=== PATIENT | female | born 2005 | race Caucasian/White ===

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

== ENCOUNTER 2024-03-23 19:49 | Emergency (ER) | payer BC, SELFPAY ==
[2024-03-23] VITALS (7 sets, daily range): BP systolic 118–132; BP diastolic 78–81; PULSE 85–89; RESP 18–20; TEMP 36.8; O2SAT 99; BMI 32.8
--- OUTSIDE RECORDS SUMMARY | 2024-03-23 19:51 | XMS_ITS | Clinical Summary ---
Author Organization [facility] Address [place], [place] [address] Care Team Providers Care Commodities Clerk Name Role Phone Pcp, No Primary Care Provider Unavailabl e Allergies No known active allergies Medications hydrOXYzine HCL (ATARAX) 10 mg tabletIndications :Anxiety Take 1 Tablet (10 mg) by mouth 2 times daily if needed for Anxiety. 30 Tablet 1 02/21/20 23 Active metroNIDAZOLE 0.75 % gelIndications:Pe riorbital dermatitis Apply topically to affected area(s) two times daily. 45 g 3 08/19/19 24 Active levonorgestrel-et hinyl estradiol (SEASONALE) 0.15 mg-30 mcg (91) tabletIndications :Encounter for other general counseling or advice on contraception Take 1 Tablet by mouth once daily. 91 Tablet 3 01/07/20 23 025 Discontinu ed(*Patien t states no longer taking) norgestimate-ethi nyl estradiol, 0.25-35 mg-mcg, (ORTHO-CYCLEN) 0.25-35 mg-mcg tabletIndications :Encounter for other general counseling or advice on contraception,Dys menorrhea,Menorrh agia with regular cycle Take 1 Tablet by mouth once daily. Skip the placebo weeks to only have a period every 3 months. 84 Tablet 4 08/19/19 24 025 Discontinu ed(*Patien t states no longer taking) diazePAM (Valium) 5 mg tabletIndications :Anxiety about treatment Take 1 Tablet (5 mg) by mouth one time for 1 dose. 1 Tablet 03/07/19 25 025 diazePAM (VALIUM) 5 mg tablet Take 1 Tablet by mouth once daily. 03/07/19 25 025 Discontinu ed(*Patien t states no longer taking) Hospital, Clinic, or Other Facility Administered Medication Ordered Dose Route Frequency Start Date End Date Status levonorgestrel (MIRENA) 21 mcg/24 hours (8 yrs) 52 mg intrauterine device (IUD) 1 DeviceIndications:Encounter for IUD insertion 1 Device IU Q 8 YEARS 03/17/2024 Active Active Problems Problem Noted Date Diagnosed Date Dysmenorrhea 08/19/2023 Menorrhagia with regular cycle 08/19/2023 Resolved Problems Problem Noted Date Diagnosed Date Resolved Date Influenza-like illness 01/15/201509/27 Encounters Date Type Department Care Team Description 03/17/2024 1:00 PM CONSTRUCTION TRADES TEACHER Office Visit [facility] [address] [facility] [address] [place] [address] Christin Kang PA Procedure (IUD insertion/) 03/17/2024 Travel 03/16/2024 Telephone [facility] [address] [place] [address] Manuel Josue MBBS Appointment 03/12/2024 Travel from Last 3 Months Immunizations Name Administration Dates Next Due DTP 05/29/2005, 5,04/09/2004,01/10 DTaP 10/26/2009, 6,04/09/2004,01/10 [id number] (Pediarix) 06/11/2004 HIB PRP-T (ActHIB,Hiberix) 05/29/2005,,04/09/2004,01/10 Hepatitis A (Peds) 10/17/2016,10/26/2009 Hepatitis B (Peds) 06/11/2004,01/11/2004, 004 Hib Conjugate, Unspecified 05/29/2005,,04/09/2004,01/10 Inactivated Polio Vaccine 10/26/2009,,04/09/2004,01/10 Influenza,LAIV4 Live Intrana davion (Flumist) 12/12/2013 MENINGOCOCCAL VACCINE 2 VIAL 2MO-55YO (MENVEO) 11/25/2021,10/17/2016 MMR 10/26/2009,05/29/2005 Pneumococcal conj 13-Valent (Prevnar 13) 05/29/2005,06/11/2004,04/09/2004,01/10 Pneumococcal conj 7-Valent (Prevnar 7) 0 05/29/2005,06/11/2004,04/09/2004,01/10 Tdap 10/17/2016 Varicella Vaccine 10/26/2009,05/29/2005 Family History Medical History Relation Name Comments Hyperlipidemia Father Hypertension Father Celiac disease Sister 1 Diabetes type I Sister 2 Relation Name Status Comments Father Alive Maternal Grandfather Alive Maternal Grandmother Mother Alive Paternal Grandfather Paternal Grandmother Sister 1 Alive Sister 2 Alive Social History Tobacco Use Types Packs/Day Years Used Date Smoking Tobacco: Never Passive Smoke Exposure: Past Smokeless Tobacco: Never Tobacco Cessation:Counseling Given: Not Answered Comments:parents smoke outside Alcohol Use Standard Drinks/Week Comments No 0 (1 standard drink = 0.6 oz pur e alcohol) PHQ-2 Answer Date Recorded PHQ-2 TOTAL SCORE 2 08/19/2023 Social Connections Answer Date Recorded Do you often feel lonely or isolated from those around you? 0 04/22/2023 Financial Resource Strain Answer Date R ecorded Difficulty of Paying Living Expenses 3 04/22/2023 Difficulty of Paying Living Expenses Not on file 04/22/2023 Food Insecurity Answer Date Recorded Do you worry your food will run out before you are able to buy more? 1 04/22/2023 Transportation Needs Answer Date Record ed Does lack of transportation keep you from medica l appointments? 1 04/22/2023 Does lack of transportation keep you from work, meetings or getting things that you need? 1 04/22/2023 Housing Stability Answer Date Recorded What is your housing situation today? 1 04/22/2023 Interpersonal Safety Answer Date Record ed Are you being hit, kicked, p ushed or yelled at (see row info)? No 02/15/2023 Interpersonal Safety Abuse 12 - 18 Not on file 02/15/2023 Interpersonal Safety Ambulatory Vulnerability No t on file 02/15/2023 Utilities Answer Date Recorded Do you have trouble paying f or utilities (for example, heat, electricity, water, phone)? 1 04/22/2023 Comments No Sex and Gender Information Value Date Recorded Sex Assigned at Female 03/26/2020 10:28 AM CONSTRUCTION TRADES TEACHER Legal Sex Female 7:58 AM CONSTRUCTION TRADES TEACHER Gender Identity Female 03/26/2020 10:28 AM CONSTRUCTION TRADES TEACHER Sexual Orientation Straight 03/26/2020 10 :28 AM CONSTRUCTION TRADES TEACHER Obstetrics History Last Filed Vital Signs Vital Sign Reading Time Taken Comments Blood Pressure 110/80 03/17/2024 1:19 PM CONSTRUCTION TRADES TEACHER Pulse 88 03/17/2024 1:19 PM CONSTRUCTION TRADES TEACHER Temperature 37 C (98.6 F) 02/15/2023 9:36 AM CONSTRUCTION TRADES TEACHER Respiratory Rate 16 02/19/2023 2:18 PM CONSTRUCTION TRADES TEACHER Oxygen Saturation 99% 04/22/2023 10:47 AM CONSTRUCTION TRADES TEACHER Inhaled Oxygen Concentration - - Weight 84.1 kg (185 lb 6.4 oz) 03/17/2024 1:19 P M CONSTRUCTION TRADES TEACHER Height 160 cm (5' 3) 08/19/2023 11:04 AM CDT Body Mass Index - - Plan of Treatment Upcoming Encounters Date Type Department Care Team (Late st Contact Info) Description 04/15/2024 2:00 PM CONSTRUCTION TRADES TEACHER Office Visit [facility] [address] [address] [place] [address] [place], [place] [id number] Health Maintenance Due Date Last Done Comments HPV series for age 9-26 (1 - 3-dose series) 11/09/2018 Well Child Check for age 3-20 09/28/2019, 10/17/2016, 10/26/2009 COVID-19 vaccine series ( season) 2023 Influenza for age 9-49 10/25/2023 12/12/2013 BMI (ht and wt on same day) for age 18+ 08/18/2024 08/19/2023, 04/22/2023, 02/19/2023, Additional history exists Depression screening for age 12+ 08/18/2024 08/19/2023, 03/26/2020, 09/27/2018, Additional history exists Chlamydia for age 16-24 03/17/2025 03/17/2024, 01/06 Tetanus booster 10/17/2026 10/17/2016 Pneumococcal series for age 6-49 Completed 05/29/2005, 05/29/2005, 06/11/2004, Additional history exists Tdap Completed 10/17/2016 Meningococcal series for age 11-21 Completed 2021, 10/17/2016 HIV for age 15-65 Completed 01/06/2023 Hepatitis C screening for ag e 18-79 Completed 01/06/2023 Procedures Procedure Name Priority Date/Time Associated Diagnosis Comments GC CHLAMYDIA TRACH PROBE Routine 03/17/2024 2:00 PM CONSTRUCTION TRADES TEACHER Encounter for IUD insertion URINE POCT Patient wait 03/17/2024 1:03 PM CONSTRUCTION TRADES TEACHER Encounter for test, result unknown ANTI HIV 1/2 Routine 01/06/2023 11:15 AM CONSTRUCTION TRADES TEACHER Screen for STD (sexually transmitted disease) ANTI HCV Routine 01/06/2023 11:15 AM CONSTRUCTION TRADES TEACHER Screen for STD (sexually transmitted disease) from Last 3 Months or Most Recently Relevant to Health Maintenance Results * Vaginal GC CHLAMYDIA TRACH PROBE (03/17/2024 2:00 PM CONSTRUCTION TRADES TEACHER) CHLAMYDIA PROBE Negative 11:33 AM CONSTRUCTION TRADES TEACHER [facility] N GONORRHOEAE PROBE Negative 03/18/2024 11:33 AM CONSTRUCTION TRADES TEACHER [facility] Other VAGINAL SWAB / Unknown Non-Blood / Unknown 03/17/2024 2:00 PM CONSTRUCTION TRADES TEACHER 03/17/2024 4:09 PM CONSTRUCTION TRADES TEACHER us Christin MARTINEZ MICROBIOLOGY Final R esult [facility] [address] [place] [address], * POCT Urine (03/17/2024 1:03 PM CONSTRUCTION TRADES TEACHER) Pathologist [facility] POC HCG URINE NEGATIVE NEGATIVE [facility] ll Specialty (Urgent Care) Urine URINE SPECIMEN / Unknown 03/17/2024 1:03 PM CONSTRUCTION TRADES TEACHER 03/17/2024 1:04 PM CONSTRUCTION TRADES TEACHER Christin Kang PA URINE Final R esult Performing Organization Address City/[facility] Co de Phone Number [facility] [address] [place] [address], [place] [facility] (Urgent Care) [address] [place] [address] * ANTI HCV (01/06/2023 11:15 AM CONSTRUCTION TRADES TEACHER) [facility] HEPATITIS C ANTIBODY Non-Reacti ve Non-React ronnie 01/06/2023 4:13 PM CONSTRUCTION TRADES TEACHER [facility] Comment:Please note, per www .CDC.gov: If a patient is known to be at high risk of HCV infection, or is symptomatic, and the physician's suspicion of HCV infection is high, HCV RNA testing is often employed and is of diagnostic value, even after an initial negative anti-HCV test result. Blood BLOOD SPECIMEN / Unknown Venipuncture / Unknown 01/06/2023 11:15 AM CONSTRUCTION TRADES TEACHER 01/06/2023 11:35 AM CONSTRUCTION TRADES TEACHER Alisia Zavaleta ARMAMENT MECHANIC SEND OUTS Final Res ult [facility] [address] [place] [address], [place] * ANTI HIV 1/2 (01/06/2023 11:15 AM CONSTRUCTION TRADES TEACHER) [facility] HIV-1/HIV-2 SCREEN Non-Reacti ve Non-Reacti ve 01/06/2023 9:37 PM CONSTRUCTION TRADES TEACHER [facility] Comment:HIV-1 p24 and HIV-1/ HIV-2 Ab Not Detected. Blood BLOOD SPECIMEN / Unknown Venipuncture / Unknown 01/06/2023 11:15 AM CONSTRUCTION TRADES TEACHER 01/06/2023 11:35 AM CONSTRUCTION TRADES TEACHER us Alisia Zavaleta ARMAMENT MECHANIC SEND OUTS Final Res ult [facility] [address] [place] [address], [place] from Last 3 Months or Most Recently Relevant to Health Maintenance Insurance [facility] Care Teams Commodities Clerk Relationship Specialty Start Date End Date Pcp, No . PCP - General 02/09/15
--- OUTSIDE RECORDS SUMMARY | 2024-03-23 19:51 | XMS_ITS | Referral Summary ---
Author Organization [facility] [place] Address [address] [place] [address] Care Team Providers Care It Engineer Name Role Phone [facility] Primary Care Provider Allergies No known active allergies Medications sucralfate (CARAFATE) 1 GM/10ML suspension Take 10 mLs (1 g) by mouth 4 times daily as needed (Epigastric pain) 420 mL 07/02/2019 Active Social History Tobacco Use Types Packs/Day Years Used Date Smoking Tobacco: Never Assessed Comments No Sex and Gender Information Value Date Recorded Sex Assigned at Not on file Legal Sex Female 4:34 AM DRY KILN OPERATOR HELPER Gender Identity Not on file Sexual Orientation Not on file Last Filed Vital Signs Vital Sign Reading Time Taken Comments Blood Pressure 130/87 07/02/2019 4:07 AM CDT Pulse 105 07/24/2018 9:15 PM CDT Temperature 37.1 C (98.8 F) 07/02/2019 4:07 AM CDT Respiratory Rate 22 07/02/2019 4:07 AM CDT Oxygen Saturation 99% 07/02/2019 4:07 AM CDT Inhaled Oxygen Concentration - - Weight 60.5 kg (133 lb 6.1 oz) 07/24/2018 9:15 P M CDT Height - - Body Mass Index - - Plan of Treatment Not on file Care Teams It Engineer Relationship Specialty Start Date End Date [facility], [facility] [address] [place], [place] [phone] PCP - General 06/10/18
--- OUTSIDE RECORDS SUMMARY | 2024-03-23 19:51 | XMS_ITS | Clinical Summary ---
Author Organization [facility] Address [address] [place] [address] Care Team Providers Care Striper Name Role Phone [facility] Primary Care Provider Allergies No known [...] on file Legal Sex Female 4:34 AM STEERER Gender Identity Not on file Sexual Orientation [...] of Treatment Not on file Care Teams Striper Relationship Specialty Start Date End Date [facility], [facility] [address] [place], [place] [address] PCP - General 06/10/18
--- NOTE | 2024-03-23 20:20 | ED.GENADULT ---
HPI - General Adult General Date Seen: 03/23/24 Chief complaint: Unspecified Complaint, Adult Stated complaint: painful cramps after IUD insertion Time Seen by Provider: 03/23/24 19:57 History of Present Illness HPI narrative: Patient is a 18-year-old here with a family member for evaluation of pelvic pain status post IUD placement last week. It sounds as if they suspect she might have endometriosis based on prior symptoms. She has a sister who was diagnosed recently with endometriosis. She says the day after the IUD was placed she had a lot of cramping and then it got better for few days but has gotten worse the past couple of days. She is having bleeding which also concerned her. They were worried about possible cyst or movement of the IUD. She has not had fevers, vomiting, urinary symptoms. IUD was placed at the [facility] [place]. Related Data Home Medications ?Medication ?Instructions ?Recorded ?Confirmed hydroxyzine HCl 10 mg tablet 10 mg PO BID PRN 03/23/24 03/23/24 Allergies Allergy/AdvReac Type Severity Reaction Status Date / Time No Known Drug Allergies Allergy Verified 03/23/24 19:59 Review of Systems Status of ROS: Reports: 6 or more systems reviewed and unremarkable except as noted in History and below [facility] Medical History Anxiety ?F41.9 - Anxiety disorder, unspecified (ICD-10) Pre-op exam ?Z01.818 - Encounter for other preprocedural examination (ICD-10) Microcytic anemia ?D50.9 - Iron deficiency anemia, unspecified (ICD-10) Surgical History No significant past surgical history Family History Maternal Grandmother Ovarian cancer Father High blood pressure Mother COPD (chronic obstructive pulmonary disease) Sister Type 1 diabetes Sister CD (celiac disease) Social History Smoking Status: Never smoker Do you use any of these nicotine containing products: None Second hand tobacco smoke exposure: No How often do you have a drink containing alcohol: never How often do you have six or more drinks on one occasion: Never AUDIT-C Alcohol total score: 0 Non-prescribed substance use: denies use Caffeine: Yes (rare) Are you using contraception or practicing any form of control: No service: No Exam Narrative: Exam Narrative: Vital signs reviewed In general, alert, nontoxic young woman. Looks comfortable. Head: Normocephalic, atraumatic. Eyes: Sclera clear. Pupils equal and reactive. ENT: Mucous membranes moist. Neck: Supple without adenopathy. Heart: Regular rate and rhythm without murmur. Lungs: Clear. No increased work of breathing, crackles or wheezes. Abdomen: Soft, nontender to palpation. Extremities: Well perfused, pulses intact. No significant edema. Neurologic: Alert, conversant. Speech fluent, face symmetric. Moves all extremities equally. Skin: Warm, dry well perfused. Affect: Normal. Const: Vital Signs, click to edit/add: Vital Signs - 24 hr 03/23/24 19:56 03/23/24 20:00 03/23/24 20:03 Temperature 98.3 F Pulse Rate [Right Pulse Oximeter] 89 Respiratory Rate 20 Respiratory Rate [ Pelvic] 18 Blood Pressure [Ri ght Upper Arm] 132/81 Pulse Oximetry 99 99 Oxygen Delivery Me thod Room Air 03/23/24 20:23 03/23/24 21:36 03/23/24 22:05 Temperature 98.3 F 98.3 F 98.3 F Pulse Rate [Right Pulse Oximeter] 85 Respiratory Rate 20 Respiratory Rate [ Pelvic] Blood Pressure [Ri ght Upper Arm] 118/78 Pulse Oximetry 99 Oxygen Delivery Me thod Room Air 03/23/24 22:07 Temperature 98.3 F Pulse Rate [Right Pulse Oximeter] 85 Respiratory Rate 20 Respiratory Rate [ Pelvic] Blood Pressure [Ri ght Upper Arm] 118/78 Pulse Oximetry Oxygen Delivery Me thod Course Course ED Course: Ultrasound is ordered to evaluate placement of the IUD and rule out cyst. UA ordered as well, will reconfirm no evidence of . Toradol 30 mg IM ordered for pain. Abdominal exam is benign. Suspicion for alternate pathologies such as appendicitis, ovarian torsion, urinary tract infection, kidney stone etcetera is rather low. Ultrasound read as unremarkable. IUD is in good position, no ovarian cyst. Color Doppler of the ovaries per Radiology report is limited, but no abnormalities in ovarian size and no large says. Overall I do not suspect that this is torsion. Urine test is negative. UA shows 25-50 red blood cells, likely related to vaginal bleeding. Reviewed with her that some cramping and bleeding is normal at this point after IUD placement. For now I would continue with ibuprofen and Tylenol, warm compresses or ice may be helpful as well. If she just does not feel that she is able to tolerate it, she can talk with her clinic and have it removed. Return any time for significant worsening symptoms, fevers, severe uncontrolled pain, vomiting etc.. Vital Signs Vital signs: Initial Vital Signs Temperature 98.3 F 03/23/24 19:56 Temperature Source Temporal Artery Scan 03/23/24 19:56 Pulse Rate 89 03/23/24 19:56 Respiratory Rate 20 03/23/24 19:56 Blood Pressure 132/81 03/23/24 19:56 Blood Pressure Mean 98 03/23/24 19:56 Blood Pressure Position Sitting 03/23/24 19:56 Pulse Oximetry 99 03/23/24 19:56 Oxygen Delivery Method Room Air 03/23/24 19:56 Vital Signs Temperature 98.3 F 03/23/24 19:56 Pulse Rate 89 03/23/24 19:56 Respiratory Rate 20 03/23/24 19:56 Blood Pressure 132/81 03/23/24 19:56 Pulse Oximetry 99 03/23/24 19:56 Oxygen Delivery Method Room Air 03/23/24 19:56 Temperature 98.3 F 03/23/24 22:07 Pulse Rate 85 03/23/24 22:07 Respiratory Rate 20 03/23/24 22:07 Blood Pressure 118/78 03/23/24 22:07 Pulse Oximetry 99 03/23/24 22:05 Oxygen Delivery Method Room Air 03/23/24 22:05 Medications Administered Medications: Discontinued Medications Generic Name Dose Route Start Last Admin Trade Name Freq PRN Reason Stop Dose Admin Ketorolac Tromethamine 30 mg 03/23/24 20:11 03/23/24 20:23 Ketorolac 30 Mg/Ml Inj IM 03/23/24 20:12 30 mg ONCE ONE Administration Medical Decision Making Lab Data Labs: Lab Results 03/23/24 Range/Units 20:12 Urine Color Yellow (Yellow) Urine Appearance Clear (Clear) Urine pH 5.5 (5.0-8.5) Ur Specific [place] 1.020 (1.000-1.030) Urine Protein Trace A (Negative) Urine Glucose (UA) Negative (Negative) Urine Ketones Negative (Negative) Urine Blood 3+ A (Negative) Urine Nitrite Negative (Negative) Urine Bilirubin Negative (Negative) Urine Urobilinogen 0.2 (0.2-1.0) Ur Leukocyte Esterase Trace A (Negative) Urine RBC 25-50 A (0-2) Urine WBC 0-2 (0-5) Ur Squamous Epith Cells Few (None-Few) Urine Bacteria None (None) Urine HCG, Qual Negative (Negative) Imaging Data US - abdomen: Attestation: I have reviewed the pertinent imaging results. Radiologist's impression: Patient: YANN ARMANDO Facility: [facility] Site . Site : 2003 Study: US-Pelvis -03/23/2024 9:22:35 PM Ordering Physician: Anna Feliz Final Report: INDICATION: IUD placed last week. Worsening pelvic pain TECHNIQUE: Ultrasound pelvis transabdominal and transvaginal. Endovaginal imaging was performed to better visualize the endometrium and ovaries. Real-time brito scale sonographic images with color Doppler imaging of the ovaries were obtained. COMPARISON: None FINDINGS: Uterus: 7 x 4 x 3.3 cm. An IUD is present in the uterine cavity near the fundus with no identified complications. Endometrium: 4 mm Right ovary: 3.5 x 2 x 2.4 cm. The right ovary is normal in appearance and echotexture. Color Doppler exam of the right ovary is limited. Left ovary: 2.2 x 2 x 2.6 cm. The left ovary is normal in appearance and echotexture. Color Doppler exam of the left ovary is limited. Cul-de-sac: Trace pelvic ascites is noted. IMPRESSION: 1. An IUD is present in the uterine cavity near the fundus with no identified complications. Dictated by Lane Enciso MD @ 03/23/2024 9:42:32 PM Dictated by: Lane Enciso MD @ 03/23/2024 21:42:36 Discharge Plan Discharge Clinical Impression: Abdominal pain Patient Disposition: Home, Self-Care Condition: Stable Instructions: Abdominal Pain (ED) Additional Instructions: Continue ibuprofen 400 mg plus Tylenol 1000 mg 3 times daily with food. Heating pad as needed. If you do not feel you can tolerate your symptoms, you can talk with your clinic and have the IUD removed. For new symptoms such as fevers, vomiting, or other worsening, return to the ER at any time. Prescriptions: No Action hydroxyzine HCl 10 mg tablet 10 mg PO BID PRN Follow Up/Referrals: Trini Gonzalez MD [Staff Physician] - Stand Alone Forms: [employer] Info Instructions
[2024-03-23] MEDS: KETOROLAC 30 MG/ML inj IM (20:23)
[2024-03-23 20:24] LABS: Appearance Urine Clear (Clear); Bilirubin Urine Negative (Negative); Blood Urine 3+ (Negative); Color Urine Yellow (Yellow); Glucose Urine Negative (Negative); Ketones Urine Negative (Negative); Leukocyte Esterase Urine Trace (Negative); Nitrite Urine Negative (Negative); Protein Urine Trace (Negative); Urobilinogen Urine 0.2 (0.2-1.0); pH Urine 5.5 (5.0-8.5)
--- OUTSIDE RECORDS SUMMARY | 2024-03-23 20:33 | XMS_ITS | Clinical Summary ---
Author Organization [facility] Address [place], [place] [address] Care Team Providers Care Chief Writer Name Role Phone Pcp, No Primary Care [...] Department Care Team Description 03/17/2024 1:00 PM THIOKOL OPERATOR Office Visit [facility] [address] [facility] [address] [place] [address] Christin Kang PA Procedure (IUD insertion/) 03/17/2024 Travel 03/16/[address] [facility] [address] [place] [address] Manuel Josue MBBS Appointment 03/12/2024 Travel from Last 3 Months Immunizations Name Administration Dates Next Due DTP 05/29/2005, 5,04/09/2004,01/10 DTaP 10/26/2009, 6,04/09/2004,01/10 [id number] (Pediarix) 06/11/2004 HIB PRP-T (ActHIB,Hiberix) 05/29/2005,,04/09/2004,01/10 Hepatitis [...] Sex Assigned at Female 03/26/2020 10:28 AM THIOKOL OPERATOR Legal Sex Female 7:58 AM THIOKOL OPERATOR Gender Identity Female 03/26/2020 10:28 AM THIOKOL OPERATOR Sexual Orientation Straight 03/26/2020 10 :28 AM THIOKOL OPERATOR Obstetrics History Last Filed Vital Signs Vital Sign Reading Time Taken Comments Blood Pressure 110/80 03/17/2024 1:19 PM THIOKOL OPERATOR Pulse 88 03/17/2024 1:19 PM THIOKOL OPERATOR Temperature 37 C (98.6 F) 02/15/2023 9:36 AM THIOKOL OPERATOR Respiratory Rate 16 02/19/2023 2:18 PM THIOKOL OPERATOR Oxygen Saturation 99% 04/22/2023 10:47 AM THIOKOL OPERATOR Inhaled Oxygen Concentration - - Weight 84.1 kg (185 lb 6.4 oz) 03/17/2024 1:19 P M THIOKOL OPERATOR Height 160 cm (5' 3) 08/19/2023 11:04 AM CDT Body Mass Index - - Plan of Treatment Upcoming Encounters Date Type Department Care Team (Late st Contact Info) Description 04/15/2024 2:00 PM THIOKOL OPERATOR Office Visit [facility] [address] [address] [place] [address] [place], [place] [phone] Health Maintenance Due Date Last Done Comments [...] CHLAMYDIA TRACH PROBE Routine 03/17/2024 2:00 PM THIOKOL OPERATOR Encounter for IUD insertion URINE POCT Patient wait 03/17/2024 1:03 PM THIOKOL OPERATOR Encounter for test, result unknown ANTI HIV 1/2 Routine 01/06/2023 11:15 AM THIOKOL OPERATOR Screen for STD (sexually transmitted disease) ANTI HCV Routine 01/06/2023 11:15 AM THIOKOL OPERATOR Screen for STD (sexually transmitted disease) from Last 3 Months or Most Recently Relevant to Health Maintenance Results * Vaginal GC CHLAMYDIA TRACH PROBE (03/17/2024 2:00 PM THIOKOL OPERATOR) CHLAMYDIA PROBE Negative 11:33 AM THIOKOL OPERATOR [facility] N GONORRHOEAE PROBE Negative 03/18/2024 11:33 AM THIOKOL OPERATOR [facility] Other VAGINAL SWAB / Unknown Non-Blood / Unknown 03/17/2024 2:00 PM THIOKOL OPERATOR 03/17/2024 4:09 PM THIOKOL OPERATOR us Christin MARTINEZ MICROBIOLOGY Final R esult [facility] [address] [place] [address], * POCT Urine (03/17/2024 1:03 PM THIOKOL OPERATOR) Pathologist [facility] POC HCG URINE NEGATIVE NEGATIVE [facility]Urgent Care) Urine URINE SPECIMEN / Unknown 03/17/2024 1:03 PM THIOKOL OPERATOR 03/17/2024 1:04 PM THIOKOL OPERATOR Christin Kang PA URINE Final R esult Performing Organization Address City/[facility] Co de Phone Number [facility] [address] [place] [address], [place] [facility] (Urgent Care) [address] [place] [address] * ANTI HCV (01/06/2023 11:15 AM THIOKOL OPERATOR) [facility] HEPATITIS C ANTIBODY Non-Reacti ve Non-React ronnie 01/06/2023 4:13 PM THIOKOL OPERATOR [facility] Comment:Please note, per www .CDC.gov: If a patient is known to be at high risk of HCV infection, or is symptomatic, and the physician's suspicion of HCV infection is high, HCV RNA testing is often employed and is of diagnostic value, even after an initial negative anti-HCV test result. Blood BLOOD SPECIMEN / Unknown Venipuncture / Unknown 01/06/2023 11:15 AM THIOKOL OPERATOR 01/06/2023 11:35 AM THIOKOL OPERATOR Alisia Zavaleta EDITING COMPUTER PUBLISHER SEND OUTS Final Res ult [facility] [address] [place] [address], [place] * ANTI HIV 1/2 (01/06/2023 11:15 AM THIOKOL OPERATOR) [facility] HIV-1/HIV-2 SCREEN Non-Reacti ve Non-Reacti ve 01/06/2023 9:37 PM THIOKOL OPERATOR [facility] Comment:HIV-1 p24 and HIV-1/ HIV-2 Ab Not Detected. Blood BLOOD SPECIMEN / Unknown Venipuncture / Unknown 01/06/2023 11:15 AM THIOKOL OPERATOR 01/06/2023 11:35 AM THIOKOL OPERATOR us Alisia Zavaleta EDITING COMPUTER PUBLISHER SEND OUTS Final Res ult [facility] [address] [place] [address], [place] from Last 3 Months or Most Recently Relevant to Health Maintenance Insurance [facility] Care Teams Chief Writer Relationship Specialty Start Date End Date Pcp, No . PCP - General 02/09/15
--- OUTSIDE RECORDS SUMMARY | 2024-03-23 20:34 | XMS_ITS | Clinical Summary ---
Author Organization [place] Address [address] [place] [address] Care Team Providers Care Fishing Tool Supervisor Name Role Phone [facility] Primary Care Provider Allergies No known active [...] on file Legal Sex Female 4:34 AM INDUSTRIAL PLANT CUSTODIAN Gender Identity Not on file Sexual Orientation [...] of Treatment Not on file Care Teams Fishing Tool Supervisor Relationship Specialty Start Date End Date [facility] [address] [place], [place] [phone] PCP - General 06/10/18
--- OUTSIDE RECORDS SUMMARY | 2024-03-23 20:34 | XMS_ITS | Referral Summary ---
Author Organization [place] Address [address] [place] [address] Care Team Providers Care Resident Physician Name Role Phone [facility] Primary Care Provider Allergies No known active [...] on file Legal Sex Female 4:34 AM FIXED INCOME ANALYST Gender Identity Not on file Sexual Orientation [...] of Treatment Not on file Care Teams Resident Physician Relationship Specialty Start Date End Date [facility], [facility] [address] [place], [place] [phone] PCP - General 06/10/18
[2024-03-23 20:35] LABS: Ur HCG Qualitative* Negative (Negative)
[2024-03-23 20:58] LABS: RBC Urine 25-50 (0-2); Squamous Epithelial Cell Urine Few (None-Few); WBC Urine 0-2 (0-5)
== END 2024-03-23 22:07 | disposition home or self-care (01) ==
PROVIDERS: Emergency Provider Emergency Medicine
DX: R10.2 Pelvic and perineal pain (principal); Z97.5 Presence of (intrauterine) contraceptive device
CPT/HCPCS: 76830; 81001; 81025; 87086; 94761; 96372; 99284; J1885